=== PATIENT | male | born 1970 | race Asian ===

== ENCOUNTER 2018-07-01 08:32 | Day surgery (SDC) | payer OTHER ==
[2018-07-01] VITALS (13 sets, daily range): BP systolic 104–141; BP diastolic 65–89; PULSE 61–68; RESP 10–19; Ht 165.1 cm; Wt 72.4 kg
[~2018-07-01] VITALS: Ht 165.1 cm; Wt 72.4 kg
[~2018-07-01 08:32] MED LIST: CEFAZOLIN 1 GM INJ ONE; DEXAMETHASONE 4 MG/ML 5 ML INJ ONE; LIDOCAINE 2% (SDV) 5 ML INJ ONE; METOCLOPRAMIDE 10 MG INJ ONE; PROPOFOL 200 MG INJ ONE
[2018-07-01] MEDS ORDERED: FENTAnyl 50 MCG/ML VIAL ONE (09:29)
[2018-07-01] MEDS ORDERED: MIDAZOLAM 1 MG/ML 2 ML INJ ONE (10:11)
[2018-07-01] MEDS ORDERED: ONDANSETRON 4 MG INJ ONE (10:14)
[2018-07-01] MEDS ORDERED: SUGAMMADEX SODIUM 200 MG/2 ML VIAL IV ONE (11:08)
[2018-07-01] MEDS ORDERED: ROPIVACAINE 0.5 % 30 ML VIAL ONE (11:11)
[2018-07-01] MEDS ORDERED: BUPIVACAINE 0.5% (SDV) 30 ML INJ ONE (11:13)
[2018-07-01] MEDS ORDERED: hydrALAzine 20 MG INJ ONE (11:15)
--- NOTE | 2018-07-01 11:53 | PREAC ---
Date/Time of Note Date/Time of Note DATE: 07/01/18 TIME: 11:53 Anesthesia Eval and Record Evaluation Time Pre-Procedure Interview DATE: 07/01/18 TIME: 11:53 Age 48 Sex male NPO: 8 hrs Preoperative diagnosis inguinal hernia Planned procedure open inguinal hernia repair w/ mesh Past Medical History Past Medical History: None Surgery & Anesthesia Issues No known issue Meds Anticoagulation: No Beta Mary Lou within 24 hr: No Reason Beta Mary Lou not given: Pt. not on B-Mary Lou No Active Prescriptions or Reported Meds Meds reviewed: Yes Allergies Coded Allergies: No Known Allergy (Unverified , 07/01/18) Allergies Reviewed: Yes Labs/Studies Labs Reviewed: Reviewed by anesthesiologist Result Diagram: 07/01/18 0910 07/01/18 0910 Laboratory Tests 07/01/18 09:10 test: N/A Pre-procedure Exam Last vitals Vital Signs Date Temp Pulse Resp B/P (MAP) Pulse Ox O2 O2 Flow FiO2 Time Delivery Rate 07/01/18 97.7 61 16 141/87 97 Room Air 09:24 (105) Airway: Adequate mouth opening, Adequate thyromental dist Mallampati: Mallampati III Teeth: Normal Lung: Normal Heart: Normal ASA Physical Status ASA physical status: 2 Emergency: None Planned Anesthetic General/MAC: LMA Planned Pain Management Single shot nerve block, Parenteral pain med, Local by surgeon Pre-operative Attestations Prior to commencing anesthesia and surgery, the patient was re-evaluated, there was verification of: *The patient's identity *The results of appropriate recent lab work and preoperative vital signs *The above evaluation not changing prior to induction *Anesthetic plan, risk benefits, alternative and complications discussed with patient/family; questions answered; patient/family understands, accepts and wishes to proceed. JOSEPHINE DENIS MD Jul 01, 2018 11:53
[2018-07-01] MEDS ORDERED: IPRATROPIUM (NEB) 0.5 MG/2.5 ML AMP HHN PRN (12:00)
[2018-07-01] MEDS ORDERED: HYDROmorphONE 1 MG/5 ML IV SYRINGE IV PRN ×3 (12:00)
[2018-07-01] MEDS ORDERED: ONDANSETRON 4 MG INJ IV PRN (12:00)
[2018-07-01] MEDS ORDERED: KETOROLAC 30 MG INJ IV PRN (12:00)
[2018-07-01] MEDS ORDERED: FENTAnyl 50 MCG/ML VIAL IV PRN ×2 (12:00)
[2018-07-01] MEDS ORDERED: LEVALBUTEROL (NEB) 1.25 MG/0.5 ML AMP HHN PRN (12:00)
[2018-07-01] MEDS ORDERED: MEPERIDINE 25 MG INJ IV PRN (12:00)
[2018-07-01] MEDS ORDERED: DIPHENHYDRAMINE 50 MG INJ IV PRN (12:00)
[2018-07-01] MEDS ORDERED: LABETALOL HCL 20MG INJ IV PRN (12:00)
[2018-07-01] MEDS ORDERED: hydrALAzine 20 MG INJ IV PRN (12:00)
[2018-07-01] MEDS ORDERED: LIDOCAINE 1%/EPI (1:100,000) (MDV) 20 ML ONE (12:56)
[2018-07-01] MEDS ORDERED: POLYMYXIN/BACITRACIN 1L IRRIG ONE (13:08)
--- NOTE | 2018-07-01 13:09 | OPR ---
Date/Time of Note Date/Time of Note DATE: 07/01/18 TIME: 13:06 Operative Report Procedure Date: Jul 01, 2018 Preoperative Diagnosis left incarcerated inguinal hernia Postoperative Diagnosis same Operation/Procedure Performed open left incarcerated inguinal hernia repair with medium ultrapro plug mesh Surgeon see signature line Associate Professor Of Counseling none Anesthesia Type: general Estimated Blood Loss: 0 - 10 ml's Transfusion none Specimen none Grafts/Implants none Complications none Pt Condition Post Procedure: stable Indications This is a 48-year-old male with incarcerated left inguinal hernia. He requires surgical repair. Risks alternatives benefits and percent were discussed the patient. Patient expresses understanding and consents to the operation. Procedure Description Patient is taken to the OR and prepped and draped in usual sterile fashion. Surgical time was performed. IV antibiotics given. Left inguinal oblique incision was made with a 10 blade. Dissection with cautery was carried onto the extremity fascia. The extremity fascia appears attenuated and there is an incarcerated hernia. The external fascia was opened with a 15 blade. This inci bucky was extended medial fairly lateral sparely with Metzenbaum scissors. Cord structures identified and encircled with a Carrie drain and kept out of harm's way. Incarcerated inguinal hernia is identified. Lysis of adhesions was performed and the incarcerated hernia was manually reduced. This area was then bolstered with the disc portion of the ultra pro hernia system mesh. The disc is secured to the internal oblique with interrupted 3-0 Vicryl. The disc is also secured to the shelving edge of inguinal ligament with a running 0 Prolene. Onlay mesh was secured in a similar fashion with a running 0 Prolene from the pubic tubercle along the shelving is unlimited. Straps are created reapproximate around the cord structures with interrupted 0 Prolene to recreate the inguinal ring. Onlay mesh was secured to enter oblique with interrupted 3-0 Vicryl. External oblique is closed with a running 3-0 Vicryl. Shelli's fascia is closed with interrupted 0 Vicryl. Skin is closed using a in[employer] observable skin stapler. A tap block was provided by the anesthesiologist. Steri-Strips and dry dressings were applied. Александр VILLATORO Jul 01, 2018 13:09
[2018-07-01] MEDS ORDERED: HYDROCODONE/APAP (5/325) TAB PO ONE (13:30)
--- NOTE | 2018-07-01 17:03 | PAC ---
Date/Time of Note Date/Time of Note DATE: 07/01/18 TIME: 17:03 Post-Anesthesia Notes Post-Anesthesia Note Last documented vital signs Vital Signs Date Temp Pulse Resp B/P (MAP) Pulse Ox O2 O2 Flow FiO2 Time Delivery Rate 07/01/18 97.5 66 18 117/75 95 14:20 (89) 07/01/18 Room Air 14:09 07/01/18 8.0 13:16 Activity: WNL Respiratory function: WNL Cardiovascular function: WNL Mental status: Baseline Pain reasonably controlled: Yes Hydration appropriate: Yes Nausea/Vomiting absent: Yes JOSEPHINE DENIS MD Jul 01, 2018 17:03
== END 2018-07-01 15:00 | disposition home or self-care (01) ==
LOC: SDS 08:32
PROVIDERS: ATTEND Surgery
DX: K40.30 Unilateral inguinal hernia, with obstruction, without gangrene, not specified as recurrent (principal)
CPT/HCPCS: 49507; 80053; 85025; 85610; 85730; C1781; J0690; J1100; J1170; J2175; J2250; J2405; J2765; J2795; J3010; Z7512; Z7610; J0360